=== PATIENT | male | born 1970 | race Caucasian/White ===

== ENCOUNTER 2018-03-18 08:27 | Day surgery (SDC) | payer MEDICAID ==
[~2018-03-18] VITALS: Ht 182.9 cm; Wt 64.6 kg
[2018-03-18 08:45] VITALS: BP 114/75
[2018-03-18] MEDS ORDERED: normal saline 1000ml 1,000 ML IV PRN (08:55)
[2018-03-18 09:18] LABS: BASOPHILS % (AUTO) 0.6 % (0-1); EOSINOPHILS # (AUTO) 0.3 X10'3 (0-0.9); HEMATOCRIT 29.2 % (42.0-52.0); HEMOGLOBIN 9.3 g/dl (14.0-17.9); LYMPHOCYTES # (AUTO) 1.3 X10'3 (1.1-4.8); LYMPHOCYTES % (AUTO) 21.2 % (21-51); MEAN CORPUSCULAR HGB CONC 31.7 % (33.0-36.5); MEAN CORPUSCULAR VOLUME 72.6 FL (78-98); MEAN PLATELET VOLUME 7.2 FL (7.4-10.4); MONOCYTES # (AUTO) 0.5 X10'3 (0-0.9); MONOCYTES % (AUTO) 7.7 % (2-12); NEUTROPHILS # (AUTO) 3.9 X10'3 (1.8-7.7); NEUTROPHILS % (AUTO) 65.5 % (42-75); PLATELET COUNT 460 X10'3 (140-440); RED BLOOD COUNT 4.02 X10'6 (4.70-6.10); RED CELL DISTRIBUTION WIDTH 21.6 % (11.5-14.5)
[2018-03-18] MEDS ORDERED: HYDR-565 PO (09:18)
[2018-03-18] MEDS ORDERED: OMEP20CA10 PO (09:18)
[2018-03-18] MEDS ORDERED: TIOT18CA3 INH (09:18)
[2018-03-18] MEDS ORDERED: DOCU-28 PO (09:18)
[2018-03-18] MEDS ORDERED: FLO0.4C PO (09:18)
[2018-03-18 09:28] LABS: ALBUMIN 2.6 G/DL (3.4-5.0); ANION GAP 8 (8-16); BLOOD UREA NITROGEN 13 MG/DL (7-18); BUN/CREATININE RATIO 14.8 (5.4-32.0); CALCIUM 8.3 MG/DL (8.5-10.1); CHLORIDE 108 MMOL/L (99-107); CREATININE 0.88 MG/DL (0.60-1.10); GLUCOSE 91 MG/DL (70-104); POTASSIUM 3.9 MMOL/L (3.5-5.1); SODIUM 142 MMOL/L (135-145); TOTAL CARBON DIOXIDE 25.7 MMOL/L (24-32); eGFR > 90 ML/MIN
[2018-03-18] MEDS ORDERED: LIDOcaine 1%/PF (10mg/ml) 5ml vial ONE (10:36)
[2018-03-18] MEDS ORDERED: midazolam 2 mg/2 ml injection ONE (10:36)
[2018-03-18] MEDS ORDERED: fentaNYL/PF 50MCG/1 ML 2ML syringe ONE (10:37)
[2018-03-18] MEDS ORDERED: heparin sodium, porcine/PF 100unit/ml 5ML syringe ONE (10:37)
[2018-03-18] MEDS ORDERED: heparin sodium, porcine/PF 100unit/ml 5ML syringe ICATH ONE (10:40)
[2018-03-18] MEDS ORDERED: midazolam 2 mg/2 ml injection IV PRN (10:40)
[2018-03-18] MEDS ORDERED: fentaNYL/PF 50MCG/1 ML 2ML syringe IV PRN (10:40)
[2018-03-18] MEDS ORDERED: LIDOcaine 1% (10mg/ml) 2ml vial SQ ONE (10:40)
[2018-03-18 11:35] VITALS: BP 121/82
[2018-03-18 11:50] VITALS: BP 124/83
[2018-03-18 12:05] VITALS: BP 121/77
[2018-03-18 12:20] VITALS: BP 119/71
[2018-03-18 12:30] VITALS: BP 125/82
== END 2018-03-18 12:39 | disposition home or self-care (01) ==
LOC: SSTAY O 08:27
PROVIDERS: ATTEND Radiology Diagnostic Radiology
DX: Z45.2 Encounter for adjustment and management of vascular access device (principal); C18.7 Malignant neoplasm of sigmoid colon; J44.9 Chronic obstructive pulmonary disease, unspecified; N40.0 Benign prostatic hyperplasia without lower urinary tract symptoms; Z87.891 Personal history of nicotine dependence; Z90.49 Acquired absence of other specified parts of digestive tract; Z98.890 Other specified postprocedural states; Z79.899 Other long term (current) drug therapy
CPT/HCPCS: 36415; 36561; 76937; 77001; 80048; 85025; 99152; 99153; A6219; C1788; C1894; J1642; J2001; J2250; J3010; J7030; A4620